=== PATIENT | female | born 1985 | race African-American/Black ===

== ENCOUNTER 2021-09-10 12:11 | Emergency (ER) | payer BC, MEDICAID ==
[~2021-09-10] VITALS: Ht 172.7 cm; Wt 68.0 kg
[2021-09-10 14:19] VITALS: BP 115/53
== END 2021-09-10 14:20 | disposition home or self-care (01) ==
LOC: ER 13:20
DX: S93.401A Sprain of unspecified ligament of right ankle, initial encounter (principal); X58.XXXA Exposure to other specified factors, initial encounter; Y93.41 Activity, dancing; Y92.89 Other specified places as the place of occurrence of the external cause
CPT/HCPCS: 73610; 73630; 99284

== ENCOUNTER 2021-10-23 16:29 | Emergency (ER) | payer MEDICAID ==
[~2021-10-23] VITALS: Ht 175.3 cm; Wt 63.0 kg
[2021-10-23] MEDS ORDERED: ACETAMINOPHEN 325MG TABLET PO ONE (20:45)
[2021-10-23] MEDS ORDERED: IBUPROFEN 400MG TABLET PO ONE (20:45)
[2021-10-23 21:42] VITALS: BP 132/81
== END 2021-10-23 23:23 | disposition home or self-care (01) ==
LOC: ER 16:29
DX: S63.592A Other specified sprain of left wrist, initial encounter (principal); V43.52XA Car driver injured in collision with other type car in traffic accident, initial encounter; Y93.89 Activity, other specified; Y92.488 Other paved roadways as the place of occurrence of the external cause
CPT/HCPCS: 71045; 73110; 73130; 99284

== ENCOUNTER 2024-01-31 07:34 | Emergency (ER) | payer MEDICAID, OTHER ==
[~2024-01-31] VITALS: Ht 172.7 cm; Wt 70.0 kg
[2024-01-31 07:52] VITALS: BP 135/87; PULSE 101; RESP 16; TEMP 98.8; O2SAT 99
[2024-01-31] MEDS ORDERED: DEXT30SU17 MT (08:42)
[2024-01-31] MEDS ORDERED: TOPUD MT (08:42)
[2024-01-31] MEDS ORDERED: IBUP-1523 MT (08:42)
[2024-01-31] MEDS ORDERED: TAM75 MT (09:25)
== END 2024-01-31 09:06 | disposition home or self-care (01) ==
LOC: ER 07:34
DX: R05.9 Cough, unspecified (principal); R50.9 Fever, unspecified; Z20.822 Contact with and (suspected) exposure to COVID-19
CPT/HCPCS: 87426; 87804; 99283